=== PATIENT | male | born 1960 | race Caucasian/White ===

== ENCOUNTER 2021-07-03 04:28 | Day surgery (SDC) | payer BC, OTHER ==
[2021-06-28 15:54] VITALS: BMI 25.7
[2021-07-03] MEDS ORDERED: ONDANSETRON 4 MG/2 ML VIAL ONE ×2 (08:11→11:36)
[2021-07-03] MEDS ORDERED: MIDAZOLAM HCL 2 MG/2 ML SINGLE DOSE VIAL ONE (11:08)
[2021-07-03 13:45] VITALS: TEMP 97.8
[2021-07-03 13:56] VITALS: BP 108/63; PULSE 64
== END 2021-07-03 12:55 | disposition home or self-care (01) ==
LOC: JASU-SURG 04:28
PROVIDERS: ATTEND Urology
PROC: 0TF3XZZ Fragmentation in Right Kidney Pelvis, External Approach (ICD-10-PCS; principal; 2021-07-03 11:00)
DX: N20.0 Calculus of kidney (principal)
CPT/HCPCS: 82962

== ENCOUNTER 2023-11-19 04:24 | Day surgery (SDC) | payer BC, OTHER ==
[2023-11-15 12:12] VITALS: BMI 23.7
[2023-11-19] MEDS ORDERED: ACETAMINOPHEN INJECTION 100 ML ONE (08:53)
[2023-11-19] MEDS ORDERED: MIDAZOLAM HCL 2 MG/2 ML SINGLE DOSE VIAL ONE (08:54)
[2023-11-19] MEDS ORDERED: ONDANSETRON 4 MG/2 ML VIAL ONE (08:58)
[2023-11-19] MEDS ORDERED: KETOROLAC TROMETHAMINE 30 MG/1 ML VIAL ONE (08:58)
[2023-11-19 09:28] VITALS: BP 120/71; PULSE 78; RESP 18; TEMP 97.3
== END 2023-11-19 10:09 | disposition home or self-care (01) ==
LOC: JASU-SURG 04:24
PROVIDERS: ATTEND Urology
PROC: 0TF4XZZ Fragmentation in Left Kidney Pelvis, External Approach (ICD-10-PCS; principal; 2023-11-19 08:30)
DX: N20.0 Calculus of kidney (principal)
CPT/HCPCS: 82962; J0131